=== PATIENT | male | born 1950 | race Asian ===

== ENCOUNTER 2021-07-17 13:55 | Outpatient (CLI) | payer MEDICARE, OTHER | END 2021-07-17 13:56 | disposition home or self-care (01) | LOC: TBSIIMAG 13:55 | PROVIDERS: ATTEND Urology | DX: R97.20 Elevated prostate specific antigen [PSA] (principal); N41.9 Inflammatory disease of prostate, unspecified | CPT/HCPCS: 72197; 82565 ==

== ENCOUNTER 2022-06-15 14:04 | Outpatient (CLI) | payer MEDICARE, OTHER | END 2022-06-15 14:05 | disposition home or self-care (01) | LOC: BICMAMMO 14:04 | PROVIDERS: ATTEND Family Medicine | DX: M81.0 Age-related osteoporosis without current pathological fracture (principal); M85.89 Other specified disorders of bone density and structure, multiple sites | CPT/HCPCS: 77080 ==

== ENCOUNTER 2022-09-11 11:43 | Outpatient (CLI) | payer MEDICARE, OTHER | END 2022-09-11 11:44 | disposition home or self-care (01) | LOC: SCSMRI 11:43 | PROVIDERS: ATTEND Surgery | DX: K81.9 Cholecystitis, unspecified (principal); K76.89 Other specified diseases of liver; K86.2 Cyst of pancreas | CPT/HCPCS: 74183; 82565 ==